=== PATIENT | male | born 1960 | race Caucasian/White ===

== ENCOUNTER 2021-09-25 07:31 | Inpatient (IN) | payer OTHER ==
[2021-09-25] MEDS ORDERED: SODIUM CHLORIDE 2,994 ML IV ONE (08:05)
[2021-09-25] MEDS ORDERED: VANCOMYCIN 1 GM in D5W (PRE-DOCKED) 1,000 MG/250 ML IVPB ONE (08:12)
[2021-09-25] MEDS ORDERED: PIPERACILLIN/TAZOB 3.375 GM 3.375 GM in DEXTROSE 5%-WATER - 50 ML IVPB ONE (08:21)
[2021-09-25 08:33] LABS: HEMATOCRIT 35.7 % (35.4-49); HEMOGLOBIN 12.5 GM/dL (11.7-16.9); MCH 30.7 pg (25.7-33.7); MCHC 34.9 g/dl (32.0-35.9); MEAN CELL VOLUME 87.8 fl (80-96); MEAN PLT VOLUME 9.1 fl (7.5-11.1); PLATELET COUNT 339 10^3/uL (134-434); RBC 4.06 M/mm3 (4.00-5.60); RDW 13.9 % (11.9-15.9); VENOUS BASE EXCESS -7.5 mmol/L (-2-2); VENOUS O2 SATURATION 86.9 % (70-80); VENOUS PCO2 27.5 mmHg (38-52); VENOUS PH 7.385 (7.310-7.410); WHITE BLOOD COUNT 29.7 K/mm3 (4.0-10.0)
[2021-09-25] MEDS ORDERED: PIPERACILLIN/TAZOB 3.375 GM 3.375 GM/50 ML BAG IVPB ONE (08:34)
[2021-09-25] MEDS ORDERED: IBUPROFEN 400 MG TABLET (FP) PO ONE ×2 (08:38)
[2021-09-25 08:56] LABS: EPI CELLS >36 /uL (0-25.1); HYALINE CASTS 9 /uL (0-3.1); PH,URINE 5.5 (5.0-8.0); URINE APPEARANCE TURBID; URINE BACTERIA >9,000 /uL (0-1359); URINE BILIRUBIN NEGATIVE (NEGATIVE); URINE COLOR YELLOW; URINE GLUCOSE (UA) 2+ (NEGATIVE); URINE KETONE NEGATIVE (NEGATIVE); URINE LEUK ESTERASE 3+ (NEGATIVE); URINE NITRITE NEGATIVE (NEGATIVE); URINE PROTEIN 2+ (NEGATIVE); URINE RBC 207 /uL (0-23.9); URINE UROBILINOGEN 0.2 mg/dL (0.2-1.0); URINE WBC 14999 /uL (0-25.8)
[2021-09-25 09:11] LABS: INR 1.35 (0.83-1.09); PROTHROMBIN TIME (PATIENT) 15.6 SEC (9.7-13.0)
[2021-09-25 09:14] LABS: ACTIVATED PTT 78.3 SECONDS (25.2-36.5)
[2021-09-25 09:15] LABS: ALBUMIN 3.3 g/dl (3.4-5.0); BILIRUBIN,TOTAL 1.1 mg/dL (0.2-1); BLOOD UREA NITROGEN 74.5 mg/dL (7-18); CALCIUM 8.9 mg/dL (8.5-10.1); TOT PROT 6.9 g/dl (6.4-8.2)
[2021-09-25] MEDS ORDERED: SODIUM CHLORIDE 0.9% 500 ML INFUS.BAG IV ONE (09:43)
[2021-09-25 10:00] LABS: ANISOCYTOSIS 0; HELMET CELLS 0; HOWELL-JOLLY BODIES 0; MACROCYTOSIS 0; OVALOCYTE 0; ROULEAU 0; SICKELED CELLS 0; TARGET CELLS 0; TEAR DROP CELLS 0; TOXIC GRANULATION 0
[2021-09-25] MEDS ORDERED: PIPERACILLIN/TAZOB 2.25 GM 2.25 GM in DEXTROSE 5%-WATER - 50 ML IVPB SCH (20:14)
[2021-09-25] MEDS ORDERED: PIPERACILLIN/TAZOBACTAM 2.25 GM VIAL IVPB ONE (22:19)
[2021-09-25] MEDS ORDERED: DEXTROSE 5%-WATER - 50 ML IVPB ONE (22:20)
[2021-09-25] MEDS: PIPERACILLIN/TAZOB 2.25 GM 2.25 GM in DEXTROSE 5%-WATER - 50 ML IVPB SCH (22:42)
[2021-09-26] MEDS ORDERED: MAG HYDROX/AL HYDROX/SIMETH 30 ML UNIT-DOSE CUP PO ONE (00:26)
[2021-09-26] MEDS ORDERED: ACETAMINOPHEN 325 MG TABLET (FP) PO ONE ×2 (02:39→21:23)
[2021-09-26] MEDS ORDERED: PIPERACILLIN/TAZOBACTAM 2.25 GM VIAL IVPB ONE ×3 (04:06→18:28)
[2021-09-26] MEDS ORDERED: DEXTROSE 5%-WATER - 50 ML IVPB ONE ×3 (04:06→18:28)
[2021-09-26] MEDS: PIPERACILLIN/TAZOB 2.25 GM 2.25 GM in DEXTROSE 5%-WATER - 50 ML IVPB SCH ×3 (05:53→18:46)
[2021-09-26 09:00] LABS: HEMATOCRIT 33.8 % (35.4-49); HEMOGLOBIN 11.7 GM/dL (11.7-16.9); MCH 30.8 pg (25.7-33.7); MCHC 34.5 g/dl (32.0-35.9); MEAN CELL VOLUME 89.2 fl (80-96); PLATELET COUNT 325 10^3/uL (134-434); RBC 3.79 M/mm3 (4.00-5.60); WHITE BLOOD COUNT 17.5 K/mm3 (4.0-10.0)
[2021-09-26 09:24] LABS: CALCIUM 8.3 mg/dL (8.5-10.1)
[2021-09-26 09:25] LABS: ALBUMIN 2.8 g/dl (3.4-5.0); BLOOD UREA NITROGEN 68.3 mg/dL (7-18); MAGNESIUM 2.2 mg/dL (1.8-2.4)
[2021-09-26 09:28] LABS: CREATININE 4.5 mg/dL (0.55-1.3); PHOSPHOROUS 3.6 mg/dL (2.5-4.9)
[2021-09-26 09:29] LABS: TOT PROT 5.9 g/dl (6.4-8.2)
[2021-09-26 09:30] LABS: BILIRUBIN,TOTAL 0.6 mg/dL (0.2-1)
[2021-09-26] MEDS: SODIUM CHLORIDE 1,000 ML IV SCH (10:03)
[2021-09-26] MEDS ORDERED: ONDANSETRON 4 MG/2 ML VIAL IVPUSH PRN (12:25)
[2021-09-26] MEDS ORDERED: SODIUM CHLORIDE 1,000 ML IV STA (14:04)
[2021-09-26] MEDS: BENZTROPINE MESYLATE 0.5 MG TABLET (FP) PO SCH ×2 (15:20→21:31)
[2021-09-26] MEDS: HEPARIN NA (PORCINE) 5,000 UNITS/ML 1ML VIAL SQ SCH (21:31)
[2021-09-26] MEDS: ATORVASTATIN CA 10 MG TABLET (FP) PO SCH (21:32)
[2021-09-27] MEDS ORDERED: PIPERACILLIN/TAZOBACTAM 2.25 GM VIAL IVPB ONE ×2 (01:28→09:09)
[2021-09-27] MEDS ORDERED: DEXTROSE 5%-WATER - 50 ML IVPB ONE ×2 (01:29→09:09)
[2021-09-27] MEDS: PIPERACILLIN/TAZOB 2.25 GM 2.25 GM in DEXTROSE 5%-WATER - 50 ML IVPB SCH ×2 (01:39→09:39)
[2021-09-27] MEDS: LEVOTHYROXINE NA 150 MCG TABLET PO SCH (06:13)
[2021-09-27 08:58] LABS: BASO % 0.1 % (0-2.0); EOS % 0.2 % (0-4.5); HEMATOCRIT 30.6 % (35.4-49); HEMOGLOBIN 10.6 GM/dL (11.7-16.9); MCH 30.5 pg (25.7-33.7); MCHC 34.6 g/dl (32.0-35.9); MEAN CELL VOLUME 88.1 fl (80-96); MEAN PLT VOLUME 9.3 fl (7.5-11.1); MONO % 12.3 % (3.8-10.2); NEUT % 78.4 % (42.8-82.8); PLATELET COUNT 334 10^3/uL (134-434); RBC 3.47 M/mm3 (4.00-5.60); RDW 14.2 % (11.9-15.9); WHITE BLOOD COUNT 13.4 K/mm3 (4.0-10.0)
[2021-09-27 09:15] LABS: ALBUMIN 2.4 g/dl (3.4-5.0); BLOOD UREA NITROGEN 57.6 mg/dL (7-18); CALCIUM 8.1 mg/dL (8.5-10.1)
[2021-09-27 09:18] LABS: CREATININE 3.8 mg/dL (0.55-1.3)
[2021-09-27 09:20] LABS: BILIRUBIN,TOTAL 0.5 mg/dL (0.2-1); TOT PROT 5.5 g/dl (6.4-8.2)
[2021-09-27] MEDS: BENZTROPINE MESYLATE 0.5 MG TABLET (FP) PO SCH ×2 (09:32→23:38)
[2021-09-27] MEDS: PARoxetine HCL 20 MG TABLET PO SCH (09:32)
[2021-09-27] MEDS: HEPARIN NA (PORCINE) 5,000 UNITS/ML 1ML VIAL SQ SCH ×2 (09:38→23:26)
[2021-09-27] MEDS: SODIUM CHLORIDE 1,000 ML IV SCH (09:39)
[2021-09-27] MEDS: LACTATED RINGERS SOLUTION 1,000 ML/1,000 ML INFUS.BAG IV SCH ×2 (12:05→23:27)
[2021-09-27] MEDS: CEFTRIAXONE 2 GM in DEXTROSE 5%-WATER 2 GM/100 ML BAG IVPB SCH (14:54)
[2021-09-27] MEDS ORDERED: DEXTROSE 5%-WATER 100 ML IVPB ONE (14:54)
[2021-09-27] MEDS: ATORVASTATIN CA 10 MG TABLET (FP) PO SCH (23:26)
[2021-09-28 08:30] LABS: HEMATOCRIT 31.7 % (35.4-49); HEMOGLOBIN 11.3 GM/dL (11.7-16.9); LYMPH % 9.4 % (8-40); MCH 30.9 pg (25.7-33.7); MCHC 35.5 g/dl (32.0-35.9); MEAN CELL VOLUME 87.1 fl (80-96); NEUT % 73.6 % (42.8-82.8); PLATELET COUNT 334 10^3/uL (134-434); RBC 3.64 M/mm3 (4.00-5.60); WHITE BLOOD COUNT 14.9 K/mm3 (4.0-10.0)
[2021-09-28] MEDS: LEVOTHYROXINE NA 150 MCG TABLET PO SCH (08:30)
[2021-09-28 08:57] LABS: ALBUMIN 2.5 g/dl (3.4-5.0); CALCIUM 8.6 mg/dL (8.5-10.1)
[2021-09-28 08:58] LABS: BLOOD UREA NITROGEN 49.1 mg/dL (7-18)
[2021-09-28 09:00] LABS: CREATININE 3.1 mg/dL (0.55-1.3)
[2021-09-28 09:01] LABS: BILIRUBIN,TOTAL 0.3 mg/dL (0.2-1); TOT PROT 5.6 g/dl (6.4-8.2)
[2021-09-28] MEDS ORDERED: DEXTROSE 5%-WATER 100 ML IVPB ONE (10:08)
[2021-09-28] MEDS: BENZTROPINE MESYLATE 0.5 MG TABLET (FP) PO SCH ×2 (10:16→21:51)
[2021-09-28] MEDS: HEPARIN NA (PORCINE) 5,000 UNITS/ML 1ML VIAL SQ SCH ×2 (10:16→21:51)
[2021-09-28] MEDS: CEFTRIAXONE 2 GM in DEXTROSE 5%-WATER 2 GM/100 ML BAG IVPB SCH (10:16)
[2021-09-28] MEDS: PARoxetine HCL 20 MG TABLET PO SCH (10:16)
[2021-09-28] MEDS: ATORVASTATIN CA 10 MG TABLET (FP) PO SCH (21:52)
[2021-09-29] MEDS: LACTATED RINGERS SOLUTION 1,000 ML/1,000 ML INFUS.BAG IV SCH ×3 (06:23→21:41)
[2021-09-29] MEDS: LEVOTHYROXINE NA 150 MCG TABLET PO SCH (06:25)
[2021-09-29] MEDS ORDERED: DEXTROSE 5%-WATER 100 ML IVPB ONE (08:45)
[2021-09-29] MEDS: CEFTRIAXONE 2 GM in DEXTROSE 5%-WATER 2 GM/100 ML BAG IVPB SCH (09:57)
[2021-09-29] MEDS: BENZTROPINE MESYLATE 0.5 MG TABLET (FP) PO SCH ×2 (09:58→21:41)
[2021-09-29] MEDS: PARoxetine HCL 20 MG TABLET PO SCH (09:58)
[2021-09-29] MEDS: HEPARIN NA (PORCINE) 5,000 UNITS/ML 1ML VIAL SQ SCH ×2 (09:59→21:42)
[2021-09-29] MEDS ORDERED: TAMSULOSIN HCL 0.4 MG CAP PO ONE (15:51)
[2021-09-29] MEDS: INSULIN SLIDING SCALE (NOVOLOG) 1 VIAL SQ SCH (16:43)
[2021-09-29] MEDS: ATORVASTATIN CA 10 MG TABLET (FP) PO SCH (21:41)
[2021-09-30] MEDS: LEVOTHYROXINE NA 150 MCG TABLET PO SCH (06:49)
[2021-09-30] MEDS: LACTATED RINGERS SOLUTION 1,000 ML/1,000 ML INFUS.BAG IV SCH ×2 (06:50→13:29)
[2021-09-30] MEDS: INSULIN SLIDING SCALE (NOVOLOG) 1 VIAL SQ SCH ×2 (06:58→17:13)
[2021-09-30 08:44] LABS: HEMATOCRIT 33.6 % (35.4-49); HEMOGLOBIN 11.6 GM/dL (11.7-16.9); MCH 30.3 pg (25.7-33.7); MCHC 34.5 g/dl (32.0-35.9); MEAN CELL VOLUME 87.8 fl (80-96); MEAN PLT VOLUME 8.9 fl (7.5-11.1); PLATELET COUNT 452 10^3/uL (134-434); RBC 3.83 M/mm3 (4.00-5.60); RDW 13.9 % (11.9-15.9); WHITE BLOOD COUNT 14.8 K/mm3 (4.0-10.0)
[2021-09-30 08:55] LABS: CALCIUM 9.4 mg/dL (8.5-10.1)
[2021-09-30 08:56] LABS: ALBUMIN 2.7 g/dl (3.4-5.0); BLOOD UREA NITROGEN 48.1 mg/dL (7-18)
[2021-09-30 08:59] LABS: CREATININE 2.7 mg/dL (0.55-1.3)
[2021-09-30 09:01] LABS: BILIRUBIN,TOTAL 0.6 mg/dL (0.2-1); TOT PROT 6.2 g/dl (6.4-8.2)
[2021-09-30] MEDS ORDERED: DEXTROSE 5%-WATER 100 ML IVPB ONE (10:32)
[2021-09-30 10:40] LABS: ANISOCYTOSIS 0; HELMET CELLS 0; HOWELL-JOLLY BODIES 0; MACROCYTOSIS 0; OVALOCYTE 0; ROULEAU 0; SICKELED CELLS 0; TARGET CELLS 0; TEAR DROP CELLS 0; TOXIC GRANULATION 0
[2021-09-30] MEDS: PARoxetine HCL 20 MG TABLET PO SCH (10:44)
[2021-09-30] MEDS: HEPARIN NA (PORCINE) 5,000 UNITS/ML 1ML VIAL SQ SCH ×2 (10:44→21:19)
[2021-09-30] MEDS: BENZTROPINE MESYLATE 0.5 MG TABLET (FP) PO SCH ×2 (10:44→21:19)
[2021-09-30] MEDS: CEFTRIAXONE 2 GM in DEXTROSE 5%-WATER 2 GM/100 ML BAG IVPB SCH (10:45)
[2021-09-30] MEDS: ATORVASTATIN CA 10 MG TABLET (FP) PO SCH (21:18)
[2021-10-01] MEDS: LACTATED RINGERS SOLUTION 1,000 ML/1,000 ML INFUS.BAG IV SCH ×2 (05:01→12:24)
[2021-10-01] MEDS: INSULIN SLIDING SCALE (NOVOLOG) 1 VIAL SQ SCH ×2 (06:01→16:42)
[2021-10-01] MEDS: LEVOTHYROXINE NA 150 MCG TABLET PO SCH (06:03)
[2021-10-01] MEDS ORDERED: DEXTROSE 5%-WATER 100 ML IVPB ONE (09:49)
[2021-10-01] MEDS: CEFTRIAXONE 2 GM in DEXTROSE 5%-WATER 2 GM/100 ML BAG IVPB SCH (10:19)
[2021-10-01] MEDS: HEPARIN NA (PORCINE) 5,000 UNITS/ML 1ML VIAL SQ SCH ×2 (10:19→21:41)
[2021-10-01] MEDS: PARoxetine HCL 20 MG TABLET PO SCH (10:19)
[2021-10-01] MEDS: BENZTROPINE MESYLATE 0.5 MG TABLET (FP) PO SCH ×2 (10:20→21:45)
[2021-10-01] MEDS: ATORVASTATIN CA 10 MG TABLET (FP) PO SCH (21:43)
[2021-10-02] MEDS: INSULIN SLIDING SCALE (NOVOLOG) 1 VIAL SQ SCH ×2 (06:09→16:57)
[2021-10-02] MEDS: LEVOTHYROXINE NA 150 MCG TABLET PO SCH (06:50)
[2021-10-02 10:06] LABS: CHLORIDE 105 mmol/L (98-107); SODIUM 138 mmol/L (136-145)
[2021-10-02 10:34] LABS: ALBUMIN 3.1 g/dl (3.4-5.0); BLOOD UREA NITROGEN 48.4 mg/dL (7-18); CO2 26 mmol/L (21-32)
[2021-10-02 10:37] LABS: CREATININE 2.7 mg/dL (0.55-1.3); SGOT/AST 62 U/L (15-37); SGPT/ALT 128 U/L (13-61)
[2021-10-02 10:38] LABS: BILIRUBIN,TOTAL 0.6 mg/dL (0.2-1); TOT PROT 6.8 g/dl (6.4-8.2)
[2021-10-02 10:39] LABS: ALK PHOS 381 U/L (45-117)
[2021-10-02] MEDS: BENZTROPINE MESYLATE 0.5 MG TABLET (FP) PO SCH ×2 (10:43→22:22)
[2021-10-02] MEDS: PARoxetine HCL 20 MG TABLET PO SCH (10:44)
[2021-10-02] MEDS: CEFTRIAXONE 2 GM in DEXTROSE 5%-WATER 2 GM/100 ML BAG IVPB SCH (10:44)
[2021-10-02 11:11] LABS: ANION GAP 8 MMOL/L (8-16); GLUCOSE,RANDOM 106 mg/dL (74-106)
[2021-10-02] MEDS ORDERED: SODIUM CHLORIDE 1,000 ML IV STA (12:45)
[2021-10-02] MEDS: HEPARIN NA (PORCINE) 5,000 UNITS/ML 1ML VIAL SQ SCH (12:46)
[2021-10-02 15:04] VITALS: BMI 29.4
[2021-10-02] MEDS: SODIUM ZIRCONIUM CYCLOSILICATE (LOKELMA) 5 GM PACKET PO SCH (15:38)
[2021-10-02 16:11] LABS: CALCIUM 9.6 mg/dL (8.5-10.1)
[2021-10-02 16:13] LABS: BLOOD UREA NITROGEN 47.3 mg/dL (7-18)
[2021-10-02 16:16] LABS: CREATININE 2.8 mg/dL (0.55-1.3)
[2021-10-02] MEDS: ATORVASTATIN CA 10 MG TABLET (FP) PO SCH (22:21)
[2021-10-03] MEDS: SODIUM ZIRCONIUM CYCLOSILICATE (LOKELMA) 5 GM PACKET PO SCH (00:03)
[2021-10-03] MEDS: HEPARIN NA (PORCINE) 5,000 UNITS/ML 1ML VIAL SQ SCH ×3 (00:10→21:49)
[2021-10-03] MEDS: INSULIN SLIDING SCALE (NOVOLOG) 1 VIAL SQ SCH ×2 (06:15→16:29)
[2021-10-03] MEDS: LEVOTHYROXINE NA 150 MCG TABLET PO SCH (06:16)
[2021-10-03] MEDS ORDERED: TAMSULOSIN HCL 0.4 MG CAP PO SCH (08:30)
[2021-10-03] MEDS: LACTATED RINGERS SOLUTION 1,000 ML/1,000 ML INFUS.BAG IV SCH (08:43)
[2021-10-03] MEDS ORDERED: DEXTROSE 5%-WATER 100 ML IVPB ONE (10:54)
[2021-10-03] MEDS: PARoxetine HCL 20 MG TABLET PO SCH (10:56)
[2021-10-03] MEDS: BENZTROPINE MESYLATE 0.5 MG TABLET (FP) PO SCH ×2 (10:56→21:48)
[2021-10-03] MEDS: CEFTRIAXONE 2 GM in DEXTROSE 5%-WATER 2 GM/100 ML BAG IVPB SCH (10:57)
[2021-10-03] MEDS ORDERED: SODIUM CHLORIDE 1,000 ML IV SCH (12:45)
[2021-10-03] MEDS ORDERED: PROPOFOL 20 ML ONE ×2 (14:53)
[2021-10-03] MEDS ORDERED: LIDOCAINE HCL 2% 100 MG/5 ML DISP.SYRIN ONE (14:53)
[2021-10-03] MEDS ORDERED: MIDAZOLAM HCL 2 MG/2 ML SINGLE DOSE VIAL ONE (14:53)
[2021-10-03] MEDS ORDERED: ceFAZolin SODIUM 1 GM VIAL IVPB ONE (15:15)
[2021-10-03] MEDS ORDERED: ceFAZolin SODIUM 1 GM VIAL ONE (15:15)
[2021-10-03] MEDS ORDERED: ONDANSETRON 4 MG/2 ML VIAL IVPUSH PRN (16:47)
[2021-10-03] MEDS: SODIUM CHLORIDE 1,000 ML IV SCH (17:15)
[2021-10-03] MEDS: ATORVASTATIN CA 10 MG TABLET (FP) PO SCH (21:47)
[2021-10-04] MEDS: SODIUM CHLORIDE 1,000 ML IV SCH ×3 (06:24→23:45)
[2021-10-04] MEDS: INSULIN SLIDING SCALE (NOVOLOG) 1 VIAL SQ SCH ×2 (06:24→17:22)
[2021-10-04] MEDS: LEVOTHYROXINE NA 150 MCG TABLET PO SCH (06:25)
[2021-10-04 09:00] LABS: HEMOGLOBIN 10.5 GM/dL (11.7-16.9); MCH 30.7 pg (25.7-33.7); MEAN CELL VOLUME 90.3 fl (80-96); MEAN PLT VOLUME 8.6 fl (7.5-11.1); PLATELET COUNT 686 10^3/uL (134-434); RBC 3.43 M/mm3 (4.00-5.60); RDW 14.4 % (11.9-15.9); WHITE BLOOD COUNT 16.6 K/mm3 (4.0-10.0)
[2021-10-04 09:44] LABS: ANISOCYTOSIS 0; HELMET CELLS 0; HOWELL-JOLLY BODIES 0; MACROCYTOSIS 0; OVALOCYTE 0; ROULEAU 0; SICKELED CELLS 0; TARGET CELLS 0; TEAR DROP CELLS 0; TOXIC GRANULATION 0
[2021-10-04 10:05] LABS: ALBUMIN 2.9 g/dl (3.4-5.0)
[2021-10-04 10:09] LABS: CREATININE 2.6 mg/dL (0.55-1.3)
[2021-10-04 10:11] LABS: TOT PROT 6.2 g/dl (6.4-8.2)
[2021-10-04 10:12] LABS: BILIRUBIN,TOTAL 1.4 mg/dL (0.2-1)
[2021-10-04] MEDS ORDERED: DEXTROSE 5%-WATER 100 ML IVPB ONE (12:27)
[2021-10-04] MEDS: HEPARIN NA (PORCINE) 5,000 UNITS/ML 1ML VIAL SQ SCH ×2 (12:35→22:50)
[2021-10-04] MEDS: TAMSULOSIN HCL 0.4 MG CAP PO SCH (12:35)
[2021-10-04] MEDS: CEFTRIAXONE 2 GM in DEXTROSE 5%-WATER 2 GM/100 ML BAG IVPB SCH (12:36)
[2021-10-04] MEDS: PARoxetine HCL 20 MG TABLET PO SCH (12:36)
[2021-10-04] MEDS: BENZTROPINE MESYLATE 0.5 MG TABLET (FP) PO SCH ×2 (12:37→22:49)
[2021-10-04] MEDS: SODIUM ZIRCONIUM CYCLOSILICATE (LOKELMA) 5 GM PACKET PO SCH (15:59)
[2021-10-04] MEDS: ATORVASTATIN CA 10 MG TABLET (FP) PO SCH (22:49)
[2021-10-05] MEDS: INSULIN SLIDING SCALE (NOVOLOG) 1 VIAL SQ SCH ×2 (06:34→17:25)
[2021-10-05] MEDS: LEVOTHYROXINE NA 150 MCG TABLET PO SCH (06:34)
[2021-10-05 09:58] LABS: CALCIUM 9.4 mg/dL (8.5-10.1)
[2021-10-05 10:02] LABS: CREATININE 2.6 mg/dL (0.55-1.3)
[2021-10-05 10:03] LABS: BILIRUBIN,TOTAL 0.4 mg/dL (0.2-1)
[2021-10-05 10:04] LABS: TOT PROT 6.2 g/dl (6.4-8.2)
[2021-10-05] MEDS ORDERED: SODIUM ZIRCONIUM CYCLOSILICATE (LOKELMA) 5 GM PACKET PO SCH (10:30)
[2021-10-05] MEDS ORDERED: DEXTROSE 5%-WATER 100 ML IVPB ONE (10:48)
[2021-10-05] MEDS: HEPARIN NA (PORCINE) 5,000 UNITS/ML 1ML VIAL SQ SCH ×2 (10:49→21:22)
[2021-10-05] MEDS: CEFTRIAXONE 2 GM in DEXTROSE 5%-WATER 2 GM/100 ML BAG IVPB SCH (10:49)
[2021-10-05] MEDS: TAMSULOSIN HCL 0.4 MG CAP PO SCH (10:49)
[2021-10-05] MEDS: PARoxetine HCL 20 MG TABLET PO SCH (10:49)
[2021-10-05] MEDS: BENZTROPINE MESYLATE 0.5 MG TABLET (FP) PO SCH ×2 (10:50→21:21)
[2021-10-05] MEDS: SODIUM ZIRCONIUM CYCLOSILICATE (LOKELMA) 5 GM PACKET PO SCH ×3 (10:50→21:22)
[2021-10-05] MEDS: SODIUM CHLORIDE 0.45% 1,000 ML IV SCH (17:44)
[2021-10-05] MEDS: ATORVASTATIN CA 10 MG TABLET (FP) PO SCH (21:21)
[2021-10-06] MEDS: LEVOTHYROXINE NA 150 MCG TABLET PO SCH (06:31)
[2021-10-06] MEDS: INSULIN SLIDING SCALE (NOVOLOG) 1 VIAL SQ SCH ×2 (06:31→17:06)
[2021-10-06 08:53] LABS: BASO % 0.8 % (0-2.0); HEMATOCRIT 34.4 % (35.4-49); HEMOGLOBIN 11.7 GM/dL (11.7-16.9); LYMPH % 14.3 % (8-40); MCH 30.8 pg (25.7-33.7); MEAN CELL VOLUME 90.4 fl (80-96); MEAN PLT VOLUME 8.2 fl (7.5-11.1); MONO % 14.7 % (3.8-10.2); NEUT % 68.2 % (42.8-82.8); PLATELET COUNT 736 10^3/uL (134-434); RBC 3.81 M/mm3 (4.00-5.60); RDW 14.2 % (11.9-15.9); WHITE BLOOD COUNT 15.8 K/mm3 (4.0-10.0)
[2021-10-06] MEDS: SODIUM CHLORIDE 0.45% 1,000 ML IV SCH ×2 (11:02→22:22)
[2021-10-06] MEDS: BENZTROPINE MESYLATE 0.5 MG TABLET (FP) PO SCH ×2 (11:03→22:14)
[2021-10-06] MEDS: TAMSULOSIN HCL 0.4 MG CAP PO SCH (11:03)
[2021-10-06] MEDS: PARoxetine HCL 20 MG TABLET PO SCH (11:03)
[2021-10-06] MEDS: HEPARIN NA (PORCINE) 5,000 UNITS/ML 1ML VIAL SQ SCH ×2 (11:04→22:14)
[2021-10-06] MEDS: SODIUM ZIRCONIUM CYCLOSILICATE (LOKELMA) 5 GM PACKET PO SCH ×2 (11:04→22:24)
[2021-10-06 17:41] LABS: ALBUMIN 3.3 g/dl (3.4-5.0); CALCIUM 9.9 mg/dL (8.5-10.1)
[2021-10-06 17:44] LABS: CREATININE 2.6 mg/dL (0.55-1.3)
[2021-10-06 17:46] LABS: BILIRUBIN,TOTAL 0.3 mg/dL (0.2-1)
[2021-10-06] MEDS: ATORVASTATIN CA 10 MG TABLET (FP) PO SCH (22:17)
[2021-10-07] MEDS: INSULIN SLIDING SCALE (NOVOLOG) 1 VIAL SQ SCH ×2 (06:09→17:22)
[2021-10-07] MEDS: LEVOTHYROXINE NA 150 MCG TABLET PO SCH (06:09)
[2021-10-07 09:33] LABS: CALCIUM 9.7 mg/dL (8.5-10.1)
[2021-10-07 09:34] LABS: ALBUMIN 3.2 g/dl (3.4-5.0); BLOOD UREA NITROGEN 42.5 mg/dL (7-18)
[2021-10-07 09:37] LABS: CREATININE 2.7 mg/dL (0.55-1.3)
[2021-10-07 09:38] LABS: BILIRUBIN,TOTAL 0.5 mg/dL (0.2-1); TOT PROT 6.8 g/dl (6.4-8.2)
[2021-10-07] MEDS: TAMSULOSIN HCL 0.4 MG CAP PO SCH (09:50)
[2021-10-07] MEDS: HEPARIN NA (PORCINE) 5,000 UNITS/ML 1ML VIAL SQ SCH ×2 (09:50→21:37)
[2021-10-07] MEDS: SODIUM ZIRCONIUM CYCLOSILICATE (LOKELMA) 5 GM PACKET PO SCH (09:51)
[2021-10-07] MEDS: BENZTROPINE MESYLATE 0.5 MG TABLET (FP) PO SCH ×2 (09:51→21:37)
[2021-10-07] MEDS: PARoxetine HCL 20 MG TABLET PO SCH (09:52)
[2021-10-07] MEDS ORDERED: SODIUM CHLORIDE 0.45% 1,000 ML IV SCH (15:17)
[2021-10-07] MEDS: ATORVASTATIN CA 10 MG TABLET (FP) PO SCH (21:37)
[2021-10-08] MEDS: INSULIN SLIDING SCALE (NOVOLOG) 1 VIAL SQ SCH ×2 (06:03→17:05)
[2021-10-08] MEDS: LEVOTHYROXINE NA 150 MCG TABLET PO SCH (06:03)
[2021-10-08 09:50] LABS: CALCIUM 9.6 mg/dL (8.5-10.1)
[2021-10-08 09:51] LABS: BLOOD UREA NITROGEN 43.9 mg/dL (7-18)
[2021-10-08 09:54] LABS: CREATININE 2.7 mg/dL (0.55-1.3)
[2021-10-08] MEDS: TAMSULOSIN HCL 0.4 MG CAP PO SCH (10:12)
[2021-10-08] MEDS: HEPARIN NA (PORCINE) 5,000 UNITS/ML 1ML VIAL SQ SCH ×2 (10:12→21:57)
[2021-10-08] MEDS: PARoxetine HCL 20 MG TABLET PO SCH (10:13)
[2021-10-08] MEDS: BENZTROPINE MESYLATE 0.5 MG TABLET (FP) PO SCH ×2 (10:13→21:56)
[2021-10-08] MEDS ORDERED: SODIUM ZIRCONIUM CYCLOSILICATE (LOKELMA) 5 GM PACKET PO SCH (12:00)
[2021-10-08] MEDS: SODIUM CHLORIDE 1,000 ML IV SCH (17:22)
[2021-10-08] MEDS: ATORVASTATIN CA 10 MG TABLET (FP) PO SCH (21:56)
[2021-10-08] MEDS: SODIUM ZIRCONIUM CYCLOSILICATE (LOKELMA) 5 GM PACKET PO SCH (21:57)
[2021-10-09] MEDS: SODIUM CHLORIDE 1,000 ML IV SCH ×2 (05:44→21:01)
[2021-10-09] MEDS: LEVOTHYROXINE NA 150 MCG TABLET PO SCH (06:18)
[2021-10-09] MEDS: INSULIN SLIDING SCALE (NOVOLOG) 1 VIAL SQ SCH ×2 (06:18→17:34)
[2021-10-09] MEDS: PARoxetine HCL 20 MG TABLET PO SCH (10:04)
[2021-10-09] MEDS: BENZTROPINE MESYLATE 0.5 MG TABLET (FP) PO SCH ×2 (10:04→20:59)
[2021-10-09] MEDS: HEPARIN NA (PORCINE) 5,000 UNITS/ML 1ML VIAL SQ SCH ×2 (10:04→21:01)
[2021-10-09] MEDS: TAMSULOSIN HCL 0.4 MG CAP PO SCH (10:05)
[2021-10-09] MEDS: SODIUM ZIRCONIUM CYCLOSILICATE (LOKELMA) 5 GM PACKET PO SCH ×2 (10:05→20:59)
[2021-10-09 10:07] LABS: BASO % 1.2 % (0-2.0); EOS % 0.4 % (0-4.5); HEMATOCRIT 31.9 % (35.4-49); LYMPH % 17.4 % (8-40); MCH 30.9 pg (25.7-33.7); MCHC 34.3 g/dl (32.0-35.9); MEAN CELL VOLUME 89.9 fl (80-96); MEAN PLT VOLUME 8.2 fl (7.5-11.1); MONO % 13.4 % (3.8-10.2); NEUT % 67.6 % (42.8-82.8); PLATELET COUNT 689 10^3/uL (134-434); RBC 3.55 M/mm3 (4.00-5.60); RDW 13.8 % (11.9-15.9); WHITE BLOOD COUNT 13.9 K/mm3 (4.0-10.0)
[2021-10-09 10:27] LABS: BLOOD UREA NITROGEN 44.4 mg/dL (7-18); CALCIUM 9.2 mg/dL (8.5-10.1)
[2021-10-09 10:30] LABS: CREATININE 2.6 mg/dL (0.55-1.3)
[2021-10-09 10:32] LABS: BILIRUBIN,TOTAL 0.6 mg/dL (0.2-1); TOT PROT 6.5 g/dl (6.4-8.2)
[2021-10-09] MEDS: ATORVASTATIN CA 10 MG TABLET (FP) PO SCH (20:59)
[2021-10-10] MEDS: INSULIN SLIDING SCALE (NOVOLOG) 1 VIAL SQ SCH (06:01)
[2021-10-10] MEDS: LEVOTHYROXINE NA 150 MCG TABLET PO SCH (06:01)
[2021-10-10] MEDS: TAMSULOSIN HCL 0.4 MG CAP PO SCH (08:21)
[2021-10-10] MEDS: PARoxetine HCL 20 MG TABLET PO SCH (09:51)
[2021-10-10] MEDS: BENZTROPINE MESYLATE 0.5 MG TABLET (FP) PO SCH (09:52)
[2021-10-10] MEDS: SODIUM ZIRCONIUM CYCLOSILICATE (LOKELMA) 5 GM PACKET PO SCH (09:53)
[2021-10-10] MEDS: HEPARIN NA (PORCINE) 5,000 UNITS/ML 1ML VIAL SQ SCH (09:53)
[2021-10-10 11:10] LABS: CALCIUM 9.3 mg/dL (8.5-10.1)
[2021-10-10 11:11] LABS: BLOOD UREA NITROGEN 45.3 mg/dL (7-18)
[2021-10-10 11:13] LABS: CREATININE 2.6 mg/dL (0.55-1.3)
[2021-10-10 11:15] LABS: BILIRUBIN,TOTAL 0.6 mg/dL (0.2-1); TOT PROT 6.6 g/dl (6.4-8.2)
[2021-10-10 11:33] VITALS: BP 108/70; PULSE 74; TEMP 98.6
== END 2021-10-10 12:03 | disposition home or self-care (01) | DRG 854 ==
LOC: JER 07:31 → JERBED 09:21 → J7W 15:12
PROVIDERS: ADMIT Internal Medicine; ATTEND Internal Medicine
PROC: 0V507ZZ Destruction of Prostate, Via Natural or Artificial Opening (ICD-10-PCS; principal; 2021-10-03 14:30)
DX: A41.50 Gram-negative sepsis, unspecified (principal); N13.6 Pyonephrosis; N17.9 Acute kidney failure, unspecified; F20.9 Schizophrenia, unspecified; E03.9 Hypothyroidism, unspecified; F31.9 Bipolar disorder, unspecified; J44.9 Chronic obstructive pulmonary disease, unspecified; E11.22 Type 2 diabetes mellitus with diabetic chronic kidney disease; F17.200 Nicotine dependence, unspecified, uncomplicated; N18.9 Chronic kidney disease, unspecified; B96.20 Unspecified Escherichia coli [E. coli] as the cause of diseases classified elsewhere; N40.1 Benign prostatic hyperplasia with lower urinary tract symptoms; E87.5 Hyperkalemia; R33.9 Retention of urine, unspecified
CPT/HCPCS: 0241U-QW; 36415; 71045-TC-FY; 74176-TC; 76775-TC; 76856-TC; 80048; 80053; 81003; 82553; 82803; 82962; 83036; 83605; 83735; 84100; 84484; 85025; 85027; 85610; 85730; 86850; 86900; 86901; 87040; 87086; 87186; 87340; 87522; 88305-TC; 93005; 93010; 94760; 97116-GP; 97161-GP; 99285-25; J1644